=== PATIENT | female | born 1975 | race Caucasian/White ===

== ENCOUNTER 2017-03-01 23:09 | Emergency (ER) | payer OTHER ==
[~2017-03-01 23:09] MED LIST: ISOVUE-370 76%-LOCM 1 ML ONE
[2017-03-01 23:35] LABS: #Eosinphils 0.2 thou/uL (0.0-0.7); #Lymphocytes 3.7 thou/uL (1.20-3.40); #Monocytes 0.8 thou/uL (0.11-0.59); #Neutrophils 7.5 thou/uL (1.40-6.50); %Basophils 0.4 % (0.0-1.0); %Eosinophils 1.5 % (0.0-10.0); %Lymphocytes 30.1 % (21.0-51.0); %Monocytes 6.5 % (0.0-10.0); Hematocrit 43.7 % (36.0-47.0); Mean Platelet Volume 6.3 fL (7.4-10.4); Red Blood Cell (RBC) Count 4.71 mill/uL (4.20-5.40); White Blood Cell (WBC) Count 12.2 thou/uL (4.8-10.8)
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
== END 2017-03-02 00:55 | disposition home or self-care (01) ==
LOC: ERS 23:09
DX: S40.012A Contusion of left shoulder, initial encounter (principal); S20.212A Contusion of left front wall of thorax, initial encounter; S50.02XA Contusion of left elbow, initial encounter; S70.12XA Contusion of left thigh, initial encounter; V49.9XXA Car occupant (driver) (passenger) injured in unspecified traffic accident, initial encounter
CPT/HCPCS: 36416; 51702; 70450; 71010; 71260; 72125; 72170; 74177; 83880; 84703; 85025; 99292; G0390

== ENCOUNTER 2017-04-26 13:16 | Emergency (ER) | payer OTHER | END 2017-04-26 14:36 | disposition home or self-care (01) | LOC: ERS 13:16 | DX: J06.9 Acute upper respiratory infection, unspecified (principal); J45.909 Unspecified asthma, uncomplicated; F32.9 Major depressive disorder, single episode, unspecified; Z79.899 Other long term (current) drug therapy | CPT/HCPCS: 99283 ==

== ENCOUNTER 2018-03-24 16:48 | Emergency (ER) | payer OTHER ==
[~2018-03-24 16:48] MED LIST changes: -ISOVUE-370 76%-LOCM 1 ML ONE; +Iopamidol 370 76% 100 ML VIAL ONE
[2018-03-24 18:31] LABS: #Basophils 0.1 thou/uL (0.0-0.2); #Eosinphils 0.4 thou/uL (0.0-0.7); #Lymphocytes 1.9 thou/uL (1.20-3.40); #Monocytes 0.6 thou/uL (0.11-0.59); #Neutrophils 7.4 thou/uL (1.40-6.50); %Basophils 0.5 % (0.0-1.0); %Lymphocytes 18.4 % (21.0-51.0); %Neutrophils 71.2 % (42.0-75.0); Hemoglobin 14.2 g/dL (12.0-16.0); Mean Corpuscular HGB CONC 33.8 g/dL (32.0-36.0); Mean Corpuscular Hemoglobin 30.6 pg (27.0-31.0); Mean Corpuscular Volume 90.7 fL (78.0-98.0); Mean Platelet Volume 6.5 fL (7.4-10.4); Platelet Count 301 thou/uL (130-400); RBC Distribution Width 13.6 % (11.5-14.5); Red Blood Cell (RBC) Count 4.63 mill/uL (4.20-5.40); White Blood Cell (WBC) Count 10.4 thou/uL (4.8-10.8)
--- NOTE | 2018-03-24 18:49 | RAD ---
PA AND LATERAL CHEST: History: Cough, chest tightness. Comparison: 05-25-10 History: Heart sized and mediastinum are within normal limits. The lungs are clear of infiltrates. Th ere are arthritic changes of the spine. IMPRESSION: No active intrathoracic disease. POS: [facility]
[2018-03-24 18:58] LABS: ALT (SGPT) 22 U/L (8-55); AST (SGOT) 26 U/L (5-34); Albumin 4.2 g/dL (3.5-5.0); Alkaline Phosphatase 112 U/L (40-150); Anion Gap 12 mmol/L (10-20); BUN (Urea Nitrogen) 8 mg/dL (7.0-18.7); Bilirubin, Total 0.5 mg/dL (0.2-1.2); Calc. Creatinine Clearance 0 mL/min (70-130); Calcium 9.4 mg/dL (7.8-10.44); Carbon Dioxide 24 mmol/L (22-29); Chloride 104 mmol/L (98-107); Estimated GFR-MDRD 62; Globulin 4.7 g/dL (2.4-3.5); Glucose 109 mg/dL (70-105); Lipase 13 U/L (8-78); Potassium 3.3 mmol/L (3.5-5.1); Protein, Total 8.9 g/dL (6.0-8.3); Sodium 137 mmol/L (136-145)
[2018-03-24 18:59] LABS: Bilirubin Negative (Negative); Blood, Urine Negative (Negative); Clarity CLEAR (Clear); Glucose, Urine (Dipstick) Negative (Negative); Leukocyte Large (Negative); Nitrite Negative (Negative); Protein, Urine (Dipstick) Negative (Neg-Trace); Specific Gravity, Urine 1.005 (1.002-1.036)
[2018-03-24 19:01] LABS: Bacteria/HPF None Seen HPF (None Seen); Hyaline Casts/LPF 0-3 HYALINE CAST LPF (0-3 Hyaline); Pathc Cast-AUWi Flag 0.43 (0-2.49); RBC/HPF 0-3 HPF (0-3); Squamous Epithelial 0-3 HPF (0-3)
--- NOTE | 2018-03-24 20:02 | CT ---
CT ANGIO OF CHEST PERFORMED WITH INTRAVENOUS CONTRAST ENHANCEMENT WITH 3D RECONSTRUCTIONS: 03/24/18 HISTORY: Cough x3 days. Shortness of breath, chest pain and pressure. The lungs show some patchy infiltrative changes in both upper and lower lung funes suggesting an ear ly pneumonitis type process. There is no significant mediastinal or hilar lymphadenopathy. There is fairly good pulmonary artery opacification. Exam quality is limited given some motion artifa ct and by body habitus. Peripheral emboli are not excluded. I do not see any signs of any central emb olus. Diffuse fatty changes of the liver are noted. IMPRESSION: Limited examination but no CT evidence for pulmonary embolus. Patchy ill-defined nodular ground glass opacities in both lung funes more prominent in the upper lobes suggested diffuse pneumonitis. POS: [facility]
[2018-03-24] MEDS ORDERED: Albuterol Sulfate 2.5 mg/3 ml Neb ONE (20:50)
== END 2018-03-24 22:11 | disposition home or self-care (01) ==
LOC: ERS 16:48
DX: J40 Bronchitis, not specified as acute or chronic (principal); I10 Essential (primary) hypertension; F32.9 Major depressive disorder, single episode, unspecified; Z79.899 Other long term (current) drug therapy
CPT/HCPCS: 71046; 71275; 80053; 81003; 81015; 83690; 84484; 85025; 85379; 93005; 96360; 96361; J7611; J7620

== ENCOUNTER 2023-06-03 18:45 | Emergency (ER) | payer BC, OTHER ==
[2023-06-03] MEDS ORDERED: HYDROcodone/Acetaminophen 5/325 mg Tablet ONE (19:40)
== END 2023-06-03 20:48 | disposition home or self-care (01) ==
LOC: ERS 18:45
DX: S40.011A Contusion of right shoulder, initial encounter (principal); I10 Essential (primary) hypertension; J45.909 Unspecified asthma, uncomplicated; Z79.899 Other long term (current) drug therapy; W18.30XA Fall on same level, unspecified, initial encounter